=== PATIENT | female | born 1940 | race Caucasian/White ===

== ENCOUNTER 2021-01-24 10:54 | Outpatient (REF) | payer MEDICARE, SELFPAY ==
[2021-01-24 11:27] LABS: Estimated Average Glucose 114 mg/dL; Hemoglobin A1c % 5.6 %
[2021-01-24 12:09] LABS: Alanine Aminotransferase 12 U/L (0-31); Albumin Level 4.4 g/dL (3.5-5.0); Alkaline Phosphatase 69 U/L (39-117); Aspartate Amino Transferase 20 U/L (5-31); Bilirubin Direct 0.3 mg/dL (0.0-0.5); Bilirubin Total 0.5 mg/dL (0.0-1.0); Cholesterol 156 mg/dL; Glucose Fasting 96 mg/dL (60-99); HDL Cholesterol 64 mg/dL; LDL Cholesterol Calculated 72 mg/dl; Total Protein 7.2 g/dL (6.5-8.0); Triglycerides 101 mg/dL
[2021-01-24 12:25] LABS: Reflex LDLD? No
== END 2021-01-24 10:55 | disposition home or self-care (01) ==
LOC: HO.LNP 10:54
PROVIDERS: Visit Provider Internal Medicine
DX: R73.03 Prediabetes (principal); E78.00 Pure hypercholesterolemia, unspecified
CPT/HCPCS: 80061; 80076; 82947; 83036

== ENCOUNTER 2021-07-22 10:40 | Outpatient (REF) | payer MEDICARE, SELFPAY ==
[2021-07-22 10:45] LABS: MANUAL DIFF FLAG NO
[2021-07-22 11:12] LABS: Basophils Absolute Auto 0.1 X10*3/uL (0.0-0.2); Basophils Percent Auto 0.8 % (0-2); Eosinophils Absolute Auto 0.2 X10*3/uL (0.0-0.4); Eosinophils Percent Auto 3.2 % (0-4); Hematocrit 43.5 % (37.0-47.0); Hemoglobin 13.8 g/dl (12.0-16.0); Imm Gran Abs Auto 0.01 X10*3/uL (0.00-0.03); Imm Gran Pct Auto 0.2 % (0.0-0.4); Lymphocytes Absolute Auto 2.3 X10*3/uL (1.2-4.9); Lymphocytes Percent Auto 37.5 % (20-40); Mean Corpuscular HGB Conc 31.7 g/dl (31.0-35.0); Mean Corpuscular Hemoglobin 30.5 pg (27.0-33.0); Mean Platelet Volume 9.8 fL (9.4-12.3); Monocytes Absolute Auto 0.7 X10*3/uL (0.1-1.2); Monocytes Percent Auto 11.2 % (2-11); Neutrophils Absolute Auto 2.9 x10*3/uL (2.0-8.3); Neutrophils Percent Auto 47.1 % (45-73); Platelet Count 282 X10*3/uL (160-400); Red Blood Count 4.53 X10*6/uL (4.20-5.50); Red Cell Distribution Width 14.2 % (11.0-16.0); White Blood Count 6.2 X10*3/uL (4.8-10.8)
[2021-07-22 11:19] LABS: Appearance Urine CLEAR; Color Urine YELLOW; Glucose Urine UA NEG (NEG); Leukocyte Esterase Urine 2+ (NEG); Nitrite Urine NEG (NEG); Urine Blood NEG (NEG); Urine Ketones NEG (NEG); Urine Protein NEG (NEG-TRACE)
[2021-07-22 11:21] LABS: Estimated Average Glucose 114 mg/dL; Hemoglobin A1c % 5.6 %
[2021-07-22 11:32] LABS: Alanine Aminotransferase 19 U/L (0-31); Albumin Level 4.4 g/dL (3.5-5.0); Alkaline Phosphatase 39 U/L (39-117); Anion Gap 11 (12-20); Aspartate Amino Transferase 22 U/L (5-31); Bilirubin Total 0.6 mg/dL (0.0-1.0); Blood Urea Nitrogen 14 mg/dL (9-16); Calcium 9.4 mg/dL (8.4-10.2); Carbon Dioxide 25 mmol/L (22-29); Chloride 108 mmol/L (96-108); Cholesterol 169 mg/dL; Estimated Glomerular Filt Rate > 60; Glucose Fasting 95 mg/dL (60-99); HDL Cholesterol 53 mg/dL; LDL Cholesterol Calculated 96 mg/dl; Sodium 140 mmol/L (135-145); Total Protein 7.3 g/dL (6.5-8.0); Triglycerides 102 mg/dL
[2021-07-22 11:37] LABS: Creatinine Urine 178.54 mg/dL; Microalbum/Creatinine Ratio Ur 15.6 ug/mg cr
[2021-07-22 11:45] LABS: Renal Epithelial Cells Urine TRACE /LPF; Squamous Epithelial Cell Urine TRACE /LPF
[2021-07-22 11:46] LABS: Amorphous Sediment Urine TRACE /LPF; Bacteria Urine TRACE /LPF; RBC Urine 0 /HPF (0)
[2021-07-22 12:01] LABS: Vitamin D 25-OH Total 55.5 ng/mL (>30)
== END 2021-07-22 10:41 | disposition home or self-care (01) ==
LOC: HO.LNP 10:40
PROVIDERS: Visit Provider Internal Medicine
DX: Z00.00 Encounter for general adult medical examination without abnormal findings (principal); D70.9 Neutropenia, unspecified; I10 Essential (primary) hypertension; R79.9 Abnormal finding of blood chemistry, unspecified; R73.03 Prediabetes; E55.9 Vitamin D deficiency, unspecified; E78.00 Pure hypercholesterolemia, unspecified
CPT/HCPCS: 80053; 80061; 81001; 81003; 82043; 82306; 83036; 85025

== ENCOUNTER 2022-01-23 10:36 | Outpatient (REF) | payer MEDICARE, SELFPAY ==
[2022-01-23 10:40] LABS: MANUAL DIFF FLAG NO
[2022-01-23 11:11] LABS: Basophils Absolute Auto 0.1 X10*3/uL (0.0-0.2); Basophils Percent Auto 0.8 % (0-2); Eosinophils Absolute Auto 0.2 X10*3/uL (0.0-0.4); Eosinophils Percent Auto 3.7 % (0-4); Hematocrit 42.4 % (37.0-47.0); Hemoglobin 13.6 g/dl (12.0-16.0); Imm Gran Abs Auto 0.02 X10*3/uL (0.00-0.03); Imm Gran Pct Auto 0.3 % (0.0-0.4); Lymphocytes Absolute Auto 2.4 X10*3/uL (1.2-4.9); Lymphocytes Percent Auto 40.4 % (20-40); Mean Corpuscular HGB Conc 32.1 g/dl (31.0-35.0); Mean Corpuscular Hemoglobin 30.2 pg (27.0-33.0); Monocytes Absolute Auto 0.7 X10*3/uL (0.1-1.2); Monocytes Percent Auto 11.8 % (2-11); Neutrophils Absolute Auto 2.5 x10*3/uL (2.0-8.3); Platelet Count 313 X10*3/uL (160-400); Red Blood Count 4.51 X10*6/uL (4.20-5.50); Red Cell Distribution Width 14.4 % (11.0-16.0); White Blood Count 5.9 X10*3/uL (4.8-10.8)
[2022-01-23 11:12] LABS: Appearance Urine CLEAR; Color Urine YELLOW; Glucose Urine UA NEG (NEG); Leukocyte Esterase Urine 2+ (NEG); Nitrite Urine NEG (NEG); PH 6.5 (5.0-8.0); Specific Gravity - Urine 1.015 (1.005-1.025); Urine Blood NEG (NEG); Urine Ketones NEG (NEG); Urine Protein NEG (NEG-TRACE)
[2022-01-23 11:17] LABS: Estimated Average Glucose 117 mg/dL; Hemoglobin A1c % 5.7 %
[2022-01-23 11:24] LABS: Alanine Aminotransferase 24 U/L (0-31); Albumin Level 4.3 g/dL (3.5-5.0); Alkaline Phosphatase 36 U/L (39-117); Anion Gap 11 (12-20); Aspartate Amino Transferase 21 U/L (5-31); Bilirubin Total 0.6 mg/dL (0.0-1.0); Blood Urea Nitrogen 16 mg/dL (9-16); Calcium 9.1 mg/dL (8.4-10.2); Carbon Dioxide 27 mmol/L (22-29); Chloride 105 mmol/L (96-108); Cholesterol 188 mg/dL; Estimated Glomerular Filt Rate > 60; Glucose Fasting 108 mg/dL (60-99); HDL Cholesterol 56 mg/dL; LDL Cholesterol Calculated 112 mg/dl; Potassium 4.1 mmol/L (3.3-5.1); Sodium 139 mmol/L (135-145); Total Protein 7.2 g/dL (6.5-8.0); Triglycerides 104 mg/dL
[2022-01-23 12:01] LABS: Creatinine Urine 94.22 mg/dL; Microalbum/Creatinine Ratio Ur 6.3 ug/mg cr
[2022-01-23 13:32] LABS: Squamous Epithelial Cell Urine TRACE /LPF
[2022-01-23 13:33] LABS: RBC Urine 0 /HPF (0)
== END 2022-01-23 10:37 | disposition home or self-care (01) ==
LOC: HO.LNP 10:36
PROVIDERS: Visit Provider Internal Medicine
DX: E78.00 Pure hypercholesterolemia, unspecified (principal); R73.03 Prediabetes
CPT/HCPCS: 80053; 80061; 81001; 82043; 83036; 85025

== ENCOUNTER 2022-07-24 10:50 | Outpatient (REF) | payer MEDICARE, SELFPAY ==
[2022-07-24 10:55] LABS: MANUAL DIFF FLAG NO
[2022-07-24 11:45] LABS: Appearance Urine Clear; Color Urine Yellow; Glucose Urine UA Negative (Negative); Leukocyte Esterase Urine Moderate (2+) (Negative); Nitrite Urine Negative (Negative); UMIC TRIGGER UA YES; Urine Blood Negative (Negative); Urine Ketones Trace mg/dL (Negative); Urine Protein Negative (Neg-Trace)
[2022-07-24 11:46] LABS: Basophils Absolute Auto 0.1 X10*3/uL (0.0-0.2); Basophils Percent Auto 1.1 % (0-2); Eosinophils Absolute Auto 0.2 X10*3/uL (0.0-0.4); Eosinophils Percent Auto 2.9 % (0-4); Hematocrit 43.6 % (37.0-47.0); Hemoglobin 14.1 g/dl (12.0-16.0); Imm Gran Abs Auto 0.01 X10*3/uL (0.00-0.03); Imm Gran Pct Auto 0.2 % (0.0-0.4); Lymphocytes Absolute Auto 2.2 X10*3/uL (1.2-4.9); Lymphocytes Percent Auto 34.7 % (20-40); Mean Corpuscular HGB Conc 32.3 g/dl (31.0-35.0); Mean Corpuscular Hemoglobin 30.9 pg (27.0-33.0); Mean Corpuscular Volume 95.6 fL (80.0-98.0); Mean Platelet Volume 9.9 fL (9.4-12.3); Monocytes Absolute Auto 0.7 X10*3/uL (0.1-1.2); Monocytes Percent Auto 11.8 % (2-11); Neutrophils Absolute Auto 3.1 x10*3/uL (2.0-8.3); Neutrophils Percent Auto 49.3 % (45-73); Platelet Count 295 X10*3/uL (160-400); Red Blood Count 4.56 X10*6/uL (4.20-5.50); Red Cell Distribution Width 13.8 % (11.0-16.0); White Blood Count 6.3 X10*3/uL (4.8-10.8)
[2022-07-24 11:49] LABS: Bacteria Urine None Seen (None Seen); Hyaline Casts Urine 0-2 /LPF (0-2); RBC Urine 0-2 /HPF (0-2); Squamous Epithelial Cell Urine 0-2 /HPF (0-2)
[2022-07-24 12:23] LABS: Creatinine Urine 163.67 mg/dL; Microalbum/Creatinine Ratio Ur 7.9 ug/mg cr
[2022-07-24 12:33] LABS: Estimated Average Glucose 117 mg/dL; Hemoglobin A1c % 5.7 %
[2022-07-24 13:02] LABS: Alanine Aminotransferase 21 U/L (0-31); Albumin Level 4.4 g/dL (3.5-5.0); Alkaline Phosphatase 32 U/L (39-117); Anion Gap 13 (12-20); Aspartate Amino Transferase 21 U/L (5-31); Bilirubin Total 0.5 mg/dL (0.0-1.0); Blood Urea Nitrogen 14 mg/dL (9-16); Calcium 9.2 mg/dL (8.4-10.2); Carbon Dioxide 26 mmol/L (22-29); Chloride 106 mmol/L (96-108); Cholesterol 167 mg/dL; Estimated Glomerular Filt Rate > 60; Glucose Fasting 101 mg/dL (60-99); HDL Cholesterol 62 mg/dL; LDL Cholesterol Calculated 89 mg/dl; Potassium 4.1 mmol/L (3.3-5.1); Sodium 141 mmol/L (135-145); Total Protein 6.9 g/dL (6.5-8.0); Triglycerides 81 mg/dL; Vitamin D 25-OH Total 65.1 ng/mL (>30)
== END 2022-07-24 10:51 | disposition home or self-care (01) ==
LOC: HO.LNP 10:50
PROVIDERS: Visit Provider Internal Medicine
DX: Z00.00 Encounter for general adult medical examination without abnormal findings (principal); I10 Essential (primary) hypertension; R79.9 Abnormal finding of blood chemistry, unspecified; E78.00 Pure hypercholesterolemia, unspecified; R73.03 Prediabetes; E55.9 Vitamin D deficiency, unspecified; D70.9 Neutropenia, unspecified
CPT/HCPCS: 80053; 80061; 81001; 82043; 82306; 83036; 85025

== ENCOUNTER 2023-01-23 11:03 | Outpatient (REF) | payer MEDICARE, SELFPAY ==
[2023-01-23 12:15] LABS: Estimated Average Glucose 108 mg/dL; Hemoglobin A1c % 5.4 %
[2023-01-23 12:28] LABS: Alanine Aminotransferase 20 U/L (0-31); Albumin Level 4.5 g/dL (3.5-5.0); Alkaline Phosphatase 30 U/L (39-117); Aspartate Amino Transferase 22 U/L (5-31); Bilirubin Direct 0.2 mg/dL (0.0-0.5); Bilirubin Total 0.7 mg/dL (0.0-1.0); Cholesterol 163 mg/dL; Glucose Fasting 100 mg/dL (60-99); HDL Cholesterol 59 mg/dL; LDL Cholesterol Calculated 87 mg/dl; Total Protein 7.5 g/dL (6.5-8.0); Triglycerides 87 mg/dL
[2023-01-23 12:42] LABS: Reflex LDLD? No
== END 2023-01-23 11:04 | disposition home or self-care (01) ==
LOC: HO.LNP 11:03
PROVIDERS: Visit Provider Internal Medicine
DX: E78.00 Pure hypercholesterolemia, unspecified (principal); R73.03 Prediabetes
CPT/HCPCS: 80061; 80076; 82947; 83036

== ENCOUNTER 2023-07-23 10:55 | Outpatient (REF) | payer MEDICARE, SELFPAY ==
[2023-07-23 10:59] LABS: MANUAL DIFF FLAG NO
[2023-07-23 11:08] LABS: Appearance Urine Clear; Color Urine Yellow; Glucose Urine UA Negative (Negative); Leukocyte Esterase Urine Negative (Negative); Nitrite Urine Negative (Negative); PH 5.5 (5.0-9.0); Urine Blood Negative (Negative); Urine Ketones Negative (Negative); Urine Protein Negative (Neg-Trace)
[2023-07-23 11:14] LABS: Bacteria Urine None Seen (None Seen); Hyaline Casts Urine 0-2 /LPF (0-2); Squamous Epithelial Cell Urine 0-2 /HPF (0-2); WBC Urine 0-5 /HPF (0-5)
[2023-07-23 11:20] LABS: Basophils Absolute Auto 0.1 X10*3/uL (0.0-0.2); Eosinophils Absolute Auto 0.1 X10*3/uL (0.0-0.4); Eosinophils Percent Auto 2.4 % (0-4); Hemoglobin 14.8 g/dl (12.0-16.0); Imm Gran Abs Auto 0.01 X10*3/uL (0.00-0.03); Imm Gran Pct Auto 0.2 % (0.0-0.4); Lymphocytes Percent Auto 33.4 % (20-40); Mean Corpuscular HGB Conc 32.9 g/dl (31.0-35.0); Mean Corpuscular Volume 94.3 fL (80.0-98.0); Mean Platelet Volume 9.9 fL (9.4-12.3); Monocytes Absolute Auto 0.6 X10*3/uL (0.1-1.2); Monocytes Percent Auto 9.7 % (2-11); Neutrophils Absolute Auto 3.2 x10*3/uL (2.0-8.3); Neutrophils Percent Auto 53.3 % (45-73); Platelet Count 301 X10*3/uL (160-400); Red Blood Count 4.77 X10*6/uL (4.20-5.50); Red Cell Distribution Width 13.4 % (11.0-16.0); White Blood Count 5.9 X10*3/uL (4.8-10.8)
[2023-07-23 11:28] LABS: Alanine Aminotransferase 20 U/L (0-31); Albumin Level 4.4 g/dL (3.5-5.0); Alkaline Phosphatase 33 U/L (39-117); Anion Gap 11 (12-20); Aspartate Amino Transferase 23 U/L (5-31); Bilirubin Total 0.5 mg/dL (0.0-1.0); Blood Urea Nitrogen 17 mg/dL (9-16); Calcium 9.5 mg/dL (8.4-10.2); Carbon Dioxide 27 mmol/L (22-29); Chloride 106 mmol/L (96-108); Cholesterol 170 mg/dL (<200); Estimated Glomerular Filt Rate > 60; Glucose Fasting 101 mg/dL (60-99); HDL Cholesterol 60 mg/dL (>40); LDL Cholesterol Calculated 95 mg/dL (<100); Potassium 4.1 mmol/L (3.3-5.1); Sodium 140 mmol/L (135-145); Total Protein 7.8 g/dL (6.5-8.0); Triglycerides 78 mg/dL (<150)
[2023-07-23 11:33] LABS: Estimated Average Glucose 111 mg/dL; Hemoglobin A1c % 5.5 % (<6.0)
[2023-07-23 12:02] LABS: Creatinine Urine 51.41 mg/dL; Microalbumin Urine < 5.0 mg/L
== END 2023-07-23 10:56 | disposition home or self-care (01) ==
LOC: HO.LNP 10:55
PROVIDERS: Visit Provider Internal Medicine
DX: Z00.00 Encounter for general adult medical examination without abnormal findings (principal); I10 Essential (primary) hypertension; E78.00 Pure hypercholesterolemia, unspecified; R73.03 Prediabetes; E55.9 Vitamin D deficiency, unspecified; D70.9 Neutropenia, unspecified
CPT/HCPCS: 80053; 80061; 81001; 82043; 82306; 82570; 83036; 85025

== ENCOUNTER 2023-07-30 16:52 | Outpatient (REF) | payer MEDICARE, SELFPAY ==
[2023-07-30 17:03] LABS: Appearance Urine Clear; Color Urine Yellow; Glucose Urine UA Negative (Negative); Leukocyte Esterase Urine Negative (Negative); Nitrite Urine Negative (Negative); PH 5.5 (5.0-9.0); Urine Blood Negative (Negative); Urine Ketones Negative (Negative); Urine Protein Negative (Neg-Trace)
[2023-07-30 17:05] LABS: Bacteria Urine None Seen (None Seen); Hyaline Casts Urine 0-2 /LPF (0-2); RBC Urine 0-2 /HPF (0-2); Squamous Epithelial Cell Urine 0-2 /HPF (0-2); WBC Urine 0-5 /HPF (0-5)
== END 2023-07-30 16:53 | disposition home or self-care (01) ==
LOC: HO.LNP 16:52
PROVIDERS: Visit Provider Internal Medicine
DX: R31.29 Other microscopic hematuria (principal)
CPT/HCPCS: 81001

== ENCOUNTER 2024-08-01 10:41 | Outpatient (REF) | payer MEDICARE, SELFPAY ==
--- OUTSIDE RECORDS SUMMARY | 2024-08-01 10:47 | XMS_ITS ---
Author Organization Malick Ayala MD Address [address] [place] [phone] Care Team Providers Care Ship'S Engineer Name Role Phone Malick Ayala Primary Care Provider REASON FOR VISIT FASTING LABS Encounters Encounter Location Date Provider Diagnosis Malick Ayala MD [address] [place] [phone] 08/01/2024 Malick Ayala Blood tests for rout ine general physical examination Z00.00 ; Essential (primary) hypertension I10 ; Elevated BUN R79.9 ; Prediabetes R73.03 ; Low vitamin D level E55.9 ; Neutropenia, unspecified type D70.9 and Pure hypercholesterolemia E78.00 ASSESSMENTS Encounter Date Diagnosis Assessment Notes Treatment Notes Treatment Clinical Notes 08/01/2024 Blood tests for rout ine general physical examination (ICD-10 - Z00.00) 08/01/2024 Essential (primary) hypertension (ICD-10 - I10) 08/01/2024 Elevated BUN (ICD-10 - R79.9) 08/01/2024 Prediabetes (ICD-10 - R73.03) 08/01/2024 Low vitamin D level (ICD-10 - E55.9) 08/01/2024 Neutropenia, unspeci fied type (ICD-10 - D70.9) 08/01/2024 Pure hypercholestero lemia (ICD-10 - E78.00) PLAN OF TREATMENT Pending Test Test Name Order Date Complete Blood Count Auto Diff Comprehensive [place]. Panel Fast 4 Lipid Panel 08/01/2024 Vitamin D 25-OH Total 08/01/2024 Microalbumin, Random 08/01/2024 Hemoglobin A1c 08/01/2024 UA ClnCatch+Micro w/rflx Cult 08/01/2024 Next Appt Details Provider Name:Malick bourne, 08/23/2024 10:00:00 AM, [address] [place] [address], [address], [place], [place], [phone],
--- OUTSIDE RECORDS SUMMARY | 2024-08-01 10:47 | XMS_ITS ---
Author Organization Malick Ayala MD Address [address] [place], [place] [phone] Care Team Providers Care Business Services Representative Name Role Phone Malick Ayala Primary Care Provider ALLERGIES Allergen (clinical drug ingredient) Drug/Non Drug Allergy documented on EMR Reaction Allergy Type Onset Date Status atorvastatin Lipitor muscle pains Drug Allergy A ctive RESULTS Component Value Reference Range Notes Urinalysis and Microscopic Reviewed date:07/31/2023 12:21:16 PM Interpretation: Performing Lab:[facility], [address] [place] [id number] Notes/Report: Color Urine Yellow Appearance Urine Clear PH 5.5 5.0-9.0 Glucose Urine UA Negative Negative mg/dL Urine Blood Negative Negative Specific [place] - Urine 1.010 1.005-1.025 Urine Protein Negative Neg-Trace mg/dL Urine Ketones Negative Negative mg/dL Nitrite Urine Negative Negative Leukocyte Esterase Urine Negative Negative RBC Urine 0-2 0-2 /HPF WBC Urine 0-5 0-5 /HPF Squamous Epithelial Cell Urine 0-2 0-2 /HPF Bacteria Urine None Seen None Seen Hyaline Casts Urine 0-2 0-2 /LPF REASON FOR VISIT ANNUAL EXAM, NO Covid symptoms MEDICATIONS Medication SIG (Take, Route, Frequency, Duration) Notes Start Date End Date Status Tylenol 8 Hour 650 MG 2 tablets as neede d Orally every 8 hrs Not-Taking Aspir-81 81 MG 1 tablet Orally Once a day 02/25/2013 Not-Taking Ibuprofen 800 MG 1 tablet with food o r milk as needed Orally Three times a day for 30 days 11/11/2018 Not-Taking Prolia 60 MG/ML as directed Subcutaneous Active Vitamin D3 2000 UNIT 2 capsule Orally On ce a day Active Cosopt 22.3-6.8 MG/ML 1 drop into affect ed eye Ophthalmic Twice a day Active Flonase 50 MCG/ACT 1 spray in each nost ril Nasally Once a day Active Lisinopril 5 MG TAKE 1 TABLET BY SEAN TH ONCE DAILY Active Rosuvastatin Calcium 20 MG TAKE 1 TABLET BY MOUTH ONCE DAILY Active SOCIAL HISTORY Tobacco Use: Social History Observation Description Date Details (start date - stop date) Never Smoker NA - NA Sex Assigned At : Social History Observation Description Sex Assigned At Unknown Tobacco Use/Smoking Question Answer Notes Patient is a nonsmoker Additional Findings: Tobacco Non-User Cu rrent non-smoker, currently using no form of tobacco Alcohol Screen Question Answer Notes Did you have a drink contain ing alcohol in the past year? Yes How often did you have a dri nk containing alcohol in the past year? Monthly or less (1 point) How many drinks did you have on a typical day when you were drinking in the past year? 1 or 2 drinks (0 point) How often did you have 6 or more drinks on one occasion in the past year? Never (0 point) Points 1 Interpretation Negative VITAL SIGNS BMI 23.58 kg/m2 07/30/2023 Blood pressure systolic 122 mm Hg 07/30/20 23 Blood pressure diastolic 70 mm Hg 023 Height 57 in 07/30/2023 Weight 109 lbs 07/30/2023 Encounters Encounter Location Date Provider Diagnosis Malick Ayala MD [address] [place] [address] [address] [place], [place] [phone] 07/30/2023 Malick Ayala Age-related osteopor osis without current pathological fracture M81.0 ; Annual physical exam Z00.00 ; Microscopic hematuria R31.29 ; Essential (primary) hypertension I10 ; Pure hypercholesterolemia E78.00 ; Prediabetes R73.03 and Depression screening Z13.31 ASSESSMENTS Encounter Date Diagnosis Assessment Notes Treatment Notes Treatment Clinical Notes 07/30/2023 Age-related osteopor osis without current pathological fracture (ICD-10 - M81.0) taking meds and is doing well. on prolia twice a year, will continue current regiment 07/30/2023 Annual physical exam (ICD-10 - Z00.00) labs reviewed and discussed with patient 07/30/2023 Microscopic hematuri a (ICD-10 - R31.29) pending recheck of lab 07/30/2023 Essential (primary) hypertension (ICD-10 - I10) stable, will continue current regiment 07/30/2023 Pure hypercholestero lemia (ICD-10 - E78.00) stable, will contnue current regiment 07/30/2023 Prediabetes (ICD-10 - R73.03) stable, no need for medication at this time 07/30/2023 Depression screening (ICD-10 - Z13.31) negative screen PLAN OF TREATMENT Medication Medication Name Sig Start Date Stop Date Notes Prolia 60 MG/ML as directed Subcutaneous Lisinopril 5 MG TAKE 1 TABLET BY SEAN TH ONCE DAILY Rosuvastatin Calcium 20 MG TAKE 1 TABLET BY MOUTH ONCE DAILY Treatment Notes Assessment Notes Age-related osteoporosis wit hout current pathological fracture taking meds and is doing well. on prolia twice a year, will continue current regiment Annual physical exam labs reviewed and d iscussed with patient Microscopic hematuria pending recheck of lab Essential (primary) hypertension stable, will continue current regiment Pure hypercholesterolemia stable, will c ontnue current regiment Prediabetes stable, no need for medication at this time Depression screening negative screen Next Appt Details Follow Up: 6 Months, Reason: Provider Name:Malick bourne, 08/23/2024 10:00:00 AM, [address], [address], [place], [place], [phone], Progress Notes * Examination Category Sub-Category Detail Notes General Examination GENERAL APPEARANCE: well dev eloped, well nourished, in no acute distress HEAD: normocephalic, atrau matic EYES: pupils equal, round, reactive to light and accommodation, sclera non- icteric EARS: normal THROAT: clear NECK/THYROID: neck supple, full ra nge of motion, no cervical lymphadenopathy, no bruits HEART: regular rate and rhy thm, S1, S2 normal, no murmurs LUNGS: clear to auscultatio n bilaterally ABDOMEN: soft, nontender, non distended, bowel sounds present, normal, no organomegaly , no masses palpable NEUROLOGIC: nonfocal, motor stre ngth normal upper and lower extremities, sensory exam intact SKIN: warm and dry, no jennifer picious lesions EXTREMITIES: no clubbing, cyanosi s, or edema BREASTS: followed by surgeon RECTAL EXAM: done by shoe repair supervisor FEMALE GENITOURINARY: done by shoe repair supervisor ORAL CAVITY: mucosa moist History and Physical Notes * HPI (History of Present Illness) Category Sub-Category Detail Notes Depression Screening PHQ-9 Little inte rest or pleasure in doing things: Not at all Feeling down, depressed, or hopeless: No t at all Trouble falling or staying asleep, or sl eeping too much: Not at all Feeling tired or having little energy: N ot at all Poor appetite or overeating: Not at all Feeling bad about yourself o r that you are a failure, or have let yourself or your family down: Not at all Trouble concentrating on thi ngs, such as reading the newspaper or watching television: Not at all Moving or speaking so slowly that other people could have noticed; or the opposite, being so fidgety or restless that you have been moving around a lot more than usual: Not at all Thoughts that you would be b tona off or of hurting yourself in some way: Not at all Total Score: 0 Interpretation and Intervention Depression Tamar solomon Findings: Negative Follow-Up for Depression: : review of PH Q-9 found negative result, no follow-up needed SDOH Questions SDOH Questions In the past year have you been worried about losing housing?: No In the past year have you or any family members you live with been unable to get any of the following when it was really needed? Check all that apply:: None Fall Risk History Have you had any falls with injury in the past year?: No Have you had two or more falls in the st year?: No Communication Needs Communication Needs Does the patient have a hearing impairment: No Does the patient have a vision impairmen t?: Yes ?If yes, what is the vision impairment?: Glasses Does the patient have a cognition impair ment?: No
--- OUTSIDE RECORDS SUMMARY | 2024-08-01 10:47 | XMS_ITS ---
Author Organization Malick Ayala MD Address [address] [place], [place] [id number] Care Team Providers Care Rotor Blade Installer Name Role Phone Malick Ayala Primary Care Provider [phone] ALLERGIES Allergen (clinical drug ingredient) Drug/Non Drug Allergy documented on EMR Reaction Allergy Type Onset Date Status atorvastatin Lipitor muscle pains Drug Allergy A ctive REASON FOR VISIT 6 MO F/U MEDICATIONS Medication SIG (Take, Route, Frequency, Duration) Notes Start Date End Date Status Aspir-81 81 MG 1 tablet Orally Once a day 02/25/2013 Not-Taking Ibuprofen 800 MG 1 tablet with food o r milk as needed Orally Three times a day for 30 days 11/11/2018 Not-Taking Cosopt 22.3-6.8 MG/ML 1 drop into affect ed eye Ophthalmic Twice a day Active Rosuvastatin Calcium 20 MG TAKE 1 TABLET BY MOUTH ONCE DAILY Active Tylenol 8 Hour 650 MG 2 tablets as neede d Orally every 8 hrs Not-Taking Lisinopril 5 MG TAKE 1 TABLET BY SEAN TH ONCE DAILY Active Vitamin D3 2000 UNIT 2 capsule Orally On a day Active Prolia 60 MG/ML as directed Subcutaneous Active VITAL SIGNS BMI 23.80 kg/m2 01/25/2024 Blood pressure systolic 124 mm Hg 01/25/20 24 Blood pressure diastolic 70 mm Hg 024 Height 57 in 01/25/2024 Weight 110 lbs 01/25/2024 Encounters Encounter Location Date Provider Diagnosis Malick Ayala MD [address] [place] [address] Drive [address] [place], [place] [phone] 01/25/2024 Malick Ayala Prediabetes R73.03 ; Essential (primary) hypertension I10 ; Age-related osteoporosis without current pathological fracture M81.0 and Environmental allergies Z91.09 ASSESSMENTS Encounter Date Diagnosis Assessment Notes Treatment Notes Treatment Clinical Notes 01/25/2024 Prediabetes (ICD-10 - R73.03) doing well, no need for medication at this time, will continue to monitor 01/25/2024 Essential (primary) hypertension (ICD-10 - I10) stable, will continue current regiment 01/25/2024 Age-related osteoporosis without current pathological fracture (ICD-10 - M81.0) exercises daily. will continue current regiment 01/25/2024 Environmental allergies (ICD-10 - Z91.09) getting shots PLAN OF TREATMENT Medication Medication Name Sig Start Date Stop Date Notes Lisinopril 5 MG TAKE 1 TABLET BY MOUTH ONCE DAILY Vitamin D3 2000 UNIT 2 capsule Orally Once a day Prolia 60 MG/ML as directed Subcutaneous Treatment Notes Assessment Notes Prediabetes doing well, no need for medication at this time, will continue to monitor Essential (primary) hypertension stable, will continue current regiment Age-related osteoporosis wit hout current pathological fracture exercises daily. will continue current regiment Environmental allergies getting shots Next Appt Details Provider Name:Malick bourne, 08/23/2024 10:00:00 AM, [address], [address], [place], [place], [phone], Progress Notes * Examination Category Sub-Category Detail Notes General Examination GENERAL APPEARANCE: alert, w ell hydrated, in no distress HEAD: normocephalic HEART: regular rate and rhy thm, no murmurs, rubs, gallops LUNGS: no wheezes, rales, r honchi, good air movement, clear to auscultation bilaterally SKIN: good turgor
--- OUTSIDE RECORDS SUMMARY | 2024-08-01 10:48 | XMS_ITS ---
Author Name [facility] Organization Unknown Results Test Name/Text Value Interpretation Date Range Source LAB AP DIAGNOSIS COMMENT Received from [facility], [address], [place] [address], are one slide and one block labeled [id number] , which are retained for our files. Normal [facility] AP GROSS DESCRIPTION Received in formalin is an irregularly shaped fragment of skin measuring 0.6 x 0.6 x 0.1 cm. The specimen is bisected and submitted entirely in one cassette. (Gross Description performed by [facility], [place], [place]) Normal [facility] AP CLINICAL INFORMATION Dysplastic nevus Normal [facility]
--- OUTSIDE RECORDS SUMMARY | 2024-08-01 10:48 | XMS_ITS | Patient Health Record ---
Author Organization Malick Ayala MD Address [address] [place], [place] [phone] Care Team Providers Care Digital Account Supervisor Name Role Phone Malick Ayala Primary Care Provider ALLERGIES Allergen (clinical drug ingredient) Drug/Non Drug Allergy documented on EMR Reaction Allergy Type Onset Date Status atorvastatin Lipitor muscle pains Drug Allergy A ctive REASON FOR REFERRAL No Information MEDICATIONS Medication SIG (Take, Route, Frequency, Duration) Notes Start Date End Date Status Vitamin D3 2000 UNIT 2 capsule Orally On ce a day Active Prolia 60 MG/ML as directed Subcutaneous Active Aspir-81 81 MG 1 tablet Orally Once a day 02/25/2013 Not-Taking Ibuprofen 800 MG 1 tablet with food o r milk as needed Orally Three times a day for 30 days 11/11/2018 Not-Taking Lisinopril 5 MG TAKE 1 TABLET BY ONCE DAILY for 100 Active Cosopt 22.3-6.8 MG/ML 1 drop into affect ed eye Ophthalmic Twice a day Active Tylenol 8 Hour 650 MG 2 tablets as neede d Orally every 8 hrs Not-Taking Rosuvastatin Calcium 20 MG TAKE 1 TABLET BY MOUTH ONCE DAILY for 100 Active IMMUNIZATIONS Vaccine Route Administration Date Status Comme nts PPSV23 (Pnemovax) IM Intramuscular 02/25/2013 Administered Mailing out VIS to patient Flu Vaccine Unknown 05/09/2013 Administered [facility] TDaP IM Intramuscular 03/17/2014 Administered Fluarix Quadrivalent IM Intramuscular 05/01/2014 Administered Fluarix Quadrivalent IM Intramuscular 05/21/2015 Administered Prevnar 13 IM Intramuscular 05/31/2015 Administered Fluarix Quadrivalent IM Intramuscular 05/27/2016 Administered Fluarix Quadrivalent IM Intramuscular 05/26/2017 Administered Fluarix Quadrivalent IM Intramuscular 06/14/2018 Administered Shingrix IM Intramuscular 07/27/2018 Administered Shingrix Unknown 01/06/2019 Administered [facility] Fluarix Quadrivalent IM Intramuscular 05/09/2019 Administered PPSV23 (Pnemovax) IM Intramuscular 06/21/2019 Administered Fluarix Quadrivalent IM Intramuscular 06/12/2020 Administered Shingles Unknown 01/06/2019 Administered SARS-COV-2 Pfizer Unknown 09/20/2020 Administered SARS-COV-2 Pfizer Unknown 10/11/2020 Administered SARS-COV-2 Pfizer Unknown 05/15/2021 Administered Influenza High Dose Unknown 05/31/2021 Administered SARS-COV-2 Pfizer Unknown 05/28/2022 Administered SOCIAL HISTORY Tobacco Use: Social History Observation [...] Never (0 point) Points 1 Interpretation Negative PROBLEMS Problem Type ICD Code Onset Dates Problem Status W/U Status Risk SNOMED Code Notes Problem Age-related osteoporosis without current pathological fracture (M81.0) Active confirmed 57394945 Problem Elevated BUN (R79.9) Active confirmed 1 30842409 Problem Essential (primary) hypertension (I10) Active confirmed Essential hypertension (99875507) Problem Environmental allerg ies (Z91.09) Active confirmed 612914759 Problem History of breast cancer (Z85.3) Active confirmed 822936273 Problem Neutropenia, unspecified type (D70.9) Active confirmed Neutropenia (896506039) Problem Prediabetes (R73.03) Active confirmed 7 62854670 Problem Pure hypercholesterolemia (E78.00) Active confirmed 103352238 Problem Low vitamin D level (E55.9) Active confirmed 831927125 Problem Age related osteoporosis, unspecified pathological fracture presence (M81.0) Active confirmed 684507960 VITAL SIGNS Blood pressure diastolic 70 mm Hg 01/25/2024 Height 57 in 01/25/2024 Blood pressure systolic 124 mm Hg 01/25/2024 Weight 110 lbs 01/25/2024 BMI 23.80 kg/m2 01/25/2024 Encounters Encounter Location Date Provider Diagnosis Malick Ayala MD [address] [place] [address] Drive [address] [place] [phone] 08/01/2024 Malick Ayala Blood tests for rout ine general physical examination Z00.00 ; Essential (primary) hypertension I10 ; Elevated BUN R79.9 ; Prediabetes R73.03 ; Low vitamin D level E55.9 ; Neutropenia, unspecified type D70.9 and Pure hypercholesterolemia E78.00 Malick Ayala MD [address] [place] [address] Drive [address] [place] [phone] 01/25/2024 Malick Ayala Prediabetes R73.03 ; Essential (primary) hypertension I10 ; Age-related osteoporosis without current pathological fracture M81.0 and Environmental allergies Z91.09 ASSESSMENTS Encounter Date Diagnosis Assessment Notes Treatment Notes Treatment Clinical Notes 08/01/2024 Blood tests for rout ine general physical examination (ICD-10 - Z00.00) 01/25/2024 Essential (primary) hypertension (ICD-10 - I10) stable, will continue current regiment 01/25/2024 Prediabetes (ICD-10 - R73.03) doing well, no need for medication at this time, will continue to monitor 08/01/2024 Essential (primary) hypertension (ICD-10 - I10) 01/25/2024 Age-related osteopor osis without current pathological fracture (ICD-10 - M81.0) exercises daily. will continue current regiment 08/01/2024 Elevated BUN (ICD-10 - R79.9) 01/25/2024 Environmental allerg ies (ICD-10 - Z91.09) getting shots 08/01/2024 Prediabetes (ICD-10 - R73.03) 08/01/2024 Low vitamin D level (ICD-10 - E55.9) 08/01/2024 Neutropenia, unspeci fied type (ICD-10 - D70.9) 08/01/2024 Pure hypercholestero lemia (ICD-10 - E78.00) PLAN OF TREATMENT Pending Test Test Name Order Date Electrocardiogram (EKG) 06/02/2016 Electrocardiogram (EKG) 06/04/2017 Electrocardiogram (EKG) 06/17/2018 KYPHOPLASTY THORACIC 11/30/2018 KYPHOPLASTY THORACIC 12/07/2018 BREAST BIOPSY CORE GUIDE 07/05/2019 Complete Blood Count Auto Diff Comprehensive [place]. Panel Fast 4 Lipid Panel 08/01/2024 Vitamin D 25-OH Total 08/01/2024 Microalbumin, Random 08/01/2024 Hemoglobin A1c 08/01/2024 UA ClnCatch+Micro w/rflx Cult 08/01/2024 Next Appt Details Provider Name:Malick Quiles ier, 08/23/2024 10:00:00 AM, [address] [place] [address], [address], [place], [place], [phone], Insurance Providers Payer Name Payer Address Payer Phone Subscriber Number Group Number Insured Name Patient Relationship to Insured Coverage Start Date Coverage End Date [facility] [employer] [address] [address] [place] [address] [id number] Patricia Bonner Self - patient is the insured MEDICAL (GENERAL) HISTORY Medical History History ICD Code colonoscopy 2002, due in 201202/25/13 - refuses bone density would nev er take meds 05/26/2013 - Colonoscopy (negative; no n eed for future testing per ) Neutropenia, unspecified type D70.9 Lymphocytosis D72.820 mammo 2020 negative
[2024-08-01 10:57] LABS: MANUAL DIFF FLAG NO
[2024-08-01 11:36] LABS: Appearance Urine Clear; Color Urine Yellow; Glucose Urine UA Negative (Negative); Leukocyte Esterase Urine Small (1+) (Negative); Nitrite Urine Negative (Negative); PH 7.5 (5.0-9.0); UMIC TRIGGER UACC YES; Urine Blood Negative (Negative); Urine Ketones Negative (Negative); Urine Protein Negative (Neg-Trace)
[2024-08-01 11:49] LABS: Bacteria Urine None Seen (None Seen); Hyaline Casts Urine 0-2 /LPF (0-2); RBC Urine 0-2 /HPF (0-2); Squamous Epithelial Cell Urine 0-2 /HPF (0-2); UACC Culture Trigger YES; WBC Urine 0-5 /HPF (0-5)
[2024-08-01 11:51] LABS: Basophils Percent Auto 0.8 % (0-2); Eosinophils Absolute Auto 0.2 X10*3/uL (0.0-0.4); Eosinophils Percent Auto 3.6 % (0-4); Hematocrit 44.1 % (37.0-47.0); Hemoglobin 14.3 g/dl (12.0-16.0); Imm Gran Abs Auto 0.01 X10*3/uL (0.00-0.03); Imm Gran Pct Auto 0.2 % (0.0-0.4); Lymphocytes Absolute Auto 2.3 X10*3/uL (1.2-4.9); Lymphocytes Percent Auto 44.3 % (20-40); Mean Corpuscular HGB Conc 32.4 g/dl (31.0-35.0); Mean Corpuscular Hemoglobin 30.7 pg (27.0-33.0); Mean Corpuscular Volume 94.6 fL (80.0-98.0); Mean Platelet Volume 9.8 fL (9.4-12.3); Monocytes Absolute Auto 0.6 X10*3/uL (0.1-1.2); Monocytes Percent Auto 11.4 % (2-11); Neutrophils Absolute Auto 2.1 x10*3/uL (2.0-8.3); Neutrophils Percent Auto 39.7 % (45-73); Platelet Count 279 X10*3/uL (160-400); Red Blood Count 4.66 X10*6/uL (4.20-5.50); Red Cell Distribution Width 14.5 % (11.0-16.0); White Blood Count 5.3 X10*3/uL (4.8-10.8)
[2024-08-01 11:56] LABS: Estimated Average Glucose 114 mg/dL; Hemoglobin A1c % 5.6 % (<6.0); Total Hemoglobin (HGBA1C) 3693.2846 umol/L
[2024-08-01 12:06] LABS: Alanine Aminotransferase 28 U/L (0-31); Albumin Level 4.4 g/dL (3.5-5.0); Alkaline Phosphatase 35 U/L (39-117); Anion Gap 12 (12-20); Aspartate Amino Transferase 29 U/L (5-31); Bilirubin Total 0.5 mg/dL (0.0-1.0); Blood Urea Nitrogen 14 mg/dL (9-16); Carbon Dioxide 26 mmol/L (22-29); Chloride 106 mmol/L (96-108); Cholesterol 179 mg/dL (<200); Estimated Glomerular Filt Rate > 60; Glucose Fasting 107 mg/dL (60-99); HDL Cholesterol 52 mg/dL (>40); LDL Cholesterol Calculated 93 mg/dL (<100); Potassium 3.9 mmol/L (3.3-5.1); Sodium 140 mmol/L (135-145); Total Protein 7.7 g/dL (6.5-8.0); Triglycerides 173 mg/dL (<150)
[2024-08-01 12:20] LABS: Creatinine Urine 43.47 mg/dL; Microalbum/Creatinine Ratio Ur 13.8 ug/mg cr (<30)
[2024-08-01 12:26] LABS: Vitamin D 25-OH Total 120.2 ng/mL (>30)
== END 2024-08-01 10:42 | disposition home or self-care (01) ==
LOC: HO.LNP 10:41
PROVIDERS: Visit Provider Internal Medicine
DX: Z00.00 Encounter for general adult medical examination without abnormal findings (principal); I10 Essential (primary) hypertension; R79.9 Abnormal finding of blood chemistry, unspecified; R73.03 Prediabetes; E55.9 Vitamin D deficiency, unspecified; D70.9 Neutropenia, unspecified; E78.00 Pure hypercholesterolemia, unspecified
CPT/HCPCS: 80053; 80061; 81001; 82043; 82306; 82570; 83036; 85025; 87086

== ENCOUNTER 2025-02-20 10:48 | Outpatient (REF) | payer MEDICARE, SELFPAY ==
[2025-02-20 11:23] LABS: Hemoglobin A1C 222.4049 umol/L; Total Hemoglobin (HGBA1C) 4115.7291 umol/L
--- OUTSIDE RECORDS SUMMARY | 2025-02-20 11:44 | XMS_ITS | Patient Health Record ---
Author Organization Malick Ayala MD Address [address] [place], [place] [address] Care Team Providers Care Electronic Parts Salesperson Name Role Phone Malick Ayala Primary Care Provider Allergies Allergen (clinical drug ingredient) Drug/Non Drug Allergy documented on EMR Reaction Allergy Type Onset Date Status atorvastatin Lipitor muscle pains Drug Allergy A ctive Results Component Value Reference Range Notes Complete Blood Count Auto Di ff Reviewed date:08/25/2024 08:10:49 AM Interpretation:SAUL 08/23/24 Performing Lab:[facility], [address] [place] [phone] Notes/Report: White Blood Count 5.3 4.8-10.8 X10*3/uL Red Blood Count 4.66 4.20-5.50 X10*6/uL Hemoglobin 14.3 12.0-16.0 g/dl Hematocrit 44.1 37.0-47.0 % Mean Corpuscular Volume 94.6 80.0-98.0 fL Mean Corpuscular Hemoglobin 30.7 27.0-33.0 pg Mean Corpuscular HGB Conc 32.4 31.0-35.0 g/dl Red Cell Distribution Width 14.5 11.0-16.0 % Platelet Count 279 160-400 X10*3/uL Mean Platelet Volume 9.8 9.4-12.3 fL Neutrophils Percent Auto 39.7 45-73 % Imm Gran Pct Auto 0.2 0.0-0.4 % Lymphocytes Percent Auto 44.3 20-40 % Monocytes Percent Auto 11.4 2-11 % Eosinophils Percent Auto 3.6 0-4 % Basophils Percent Auto 0.8 0-2 % NRBC Pct Auto 0.0 0.0-0.2 /100WBC Neutrophils Absolute Auto 2.1 2.0-8.3 x10*3/u L Imm Gran Abs Auto 0.01 0.00-0.03 X10*3/uL Lymphocytes Absolute Auto 2.3 1.2-4.9 X10*3/u L Monocytes Absolute Auto 0.6 0.1-1.2 X10*3/uL Eosinophils Absolute Auto 0.2 0.0-0.4 X10*3/u L Basophils Absolute Auto 0.0 0.0-0.2 X10*3/uL NRBC Abs Auto 0.000 0.0-0.012 X10*3/uL Comprehensive [place]. Panel Fa st Reviewed date:08/01/2024 05:06:42 PM Interpretation: Performing Lab:[facility], [address] [place] [phone] Notes/Report: Sodium 140 135-145 mmol/L Potassium 3.9 3.3-5.1 mmol/L Chloride 106 96-108 mmol/L Carbon Dioxide 26 22-29 mmol/L Anion Gap 12 12-20 Blood Urea Nitrogen 14 9-16 mg/dL Creatinine 0.66 0.5-1.4 mg/dL Estimated Glomerular Filt Rate > 60 Chronic Kidney Disease: Estimated GFR < 60 mL/min/1.73m2 Severe Kidney Disease: Estimated GFR < 15 mL/min/1.73m2 Glucose Fasting 107 60-99 mg/dL A fasting glucose from 100-125 mg/dl is considered impaired (pre-diabetes). Calcium 9.0 8.4-10.2 mg/dL Bilirubin Total 0.5 0.0-1.0 mg/dL Aspartate Amino Transferase 29 5-31 U/L Alanine Aminotransferase 28 0-31 U/L Total Protein 7.7 6.5-8.0 g/dL Albumin Level 4.4 3.5-5.0 g/dL Alkaline Phosphatase 35 39-117 U/L Lipid Panel Reviewed date:08/25/2024 08:11:13 AM Interpretation:saul 08/23/24 Performing Lab:[facility], [address] [place] [phone] Notes/Report: Triglycerides 173 <150 mg/dL Desirable Triglyceride: less than 150 mg/dL Borderline High Triglyceride 150-199 mg/dL High Triglyceride: 200-499 mg/dL Very High Triglyceride: greater than or equal to 5OO mg/dL Cholesterol 179 <200 mg/dL Desirable Cholesterol: less than 200 mg/dL Borderline High Cholesterol: 200-239 mg/dL High Cholesterol: greater than 239 mg/dL LDL Cholesterol Calculated 93 <100 mg/dL Desirable LDL: less than 100 mg/dL Near Optimal/Above Optimal LDL: 110-129 mg/dL Borderline High LDL: 130-159 mg/dL High LDL: 160-189 mg/dL Very High LDL: greater than or equal to 190 mg/dL HDL Cholesterol 52 >40 mg/dL Desirable HDL: greater than 40 mg/dL Note: This HDL assay may give artificially low results in patients with liver disease. Vitamin D 25-OH Total Reviewed date:08/01/2024 12:45:04 PM Interpretation: Performing Lab:[facility], [address] [place] [phone] Notes/Report: Vitamin D 25-OH Total 120.2 >30 ng/mL Health Based Reference Values* < 20 ng/mL Deficient 20-30 ng/mL Insufficient > 30 ng/mL Sufficient *Clark LIU. N Engl J Med. 2007;357:266-280 Care must be taken in interpreting Vitamin D results from different laboratories and methodologies. Published data demonstrated that results from patients undergoing hemodialysis may show a negative bias when tested with various automated 25-OH vitamin D assays when compared to LC-MS/MS. When testing samples from patients whose predominant form of Vitamin D is Vitamin D2, such as patients receiving Vitamin D2 supplementation, results that are subtherapeutic should be confirmed with another method such as LC-MS/MS. Microalbumin, Random Reviewed date:08/01/2024 05:00:04 PM Interpretation: Performing Lab:[facility], [address] [place] [phone] Notes/Report: Creatinine Urine 43.47 Microalbumin Urine 6.0 Microalbum/Creatinine Ratio Ur 13.8 <30 ug/mg cr Albumin/Creatinine Ratio Reference Ranges: Normal: < 30 ug/mg creatinine Microalbuminuria: 30 - 300 ug/mg creatinine Clinical Albuminuria: > 300 ug/mg creatinine Hemoglobin A1c Reviewed date:08/01/2024 12:17:26 PM Interpretation: Performing Lab:[facility], [address] [place] [phone] Notes/Report: Hemoglobin A1c % 5.6 <6.0 % Hemoglobin A1C Reference Range Adults: 4.8 - 6.0 % Non diabetic: < 6.0 % Goal: < 7.0 % Additional Action Suggested: > 8.0 % Note: Hemoglobin A1c results are invalid for patients with abnormal amounts of HbF. Blood transfusions may impact the HbA1c concentration in the patient sample. Estimated Average Glucose 114 eAG = Estimated average glucose which is %A1C expressed as average glucose, using the formula of the M9M-Onfgjff Average Glucose study (ADAG), Diabetes Care, Vol.31,#8, Mar. 2007 UA ClnCatch+Micro w/rflx Cul t Reviewed date:08/01/2024 12:44:53 PM Interpretation: Performing Lab:[facility], [address] [place] [phone] Notes/Report: Urine, Clean Catch Color Urine Yellow Appearance Urine Clear PH 7.5 5.0-9.0 Glucose Urine UA Negative Negative mg/dL Urine Blood Negative Negative Specific [place] - Urine 1.010 1.005-1.025 Urine Protein Negative Neg-Trace mg/dL Urine Ketones Negative Negative mg/dL Nitrite Urine Negative Negative Leukocyte Esterase Urine Small (1+) Negative RBC Urine 0-2 0-2 /HPF WBC Urine 0-5 0-5 /HPF Squamous Epithelial Cell Urine 0-2 0-2 /HPF Bacteria Urine None Seen None Seen Hyaline Casts Urine 0-2 0-2 /LPF Hemoglobin A1c (Not yet revi ewed by provider) Interpretation: Performing Lab:[facility], [address] [place] [phone] Notes/Report: Hemoglobin A1c % 7.1 <6.0 % Hemoglobin A1C Reference Range Adults: 4.8 - 6.0 % Non diabetic: < 6.0 % Goal: < 7.0 % Additional Action Suggested: > 8.0 % Note: Hemoglobin A1c results are invalid for patients with abnormal amounts of HbF. Blood transfusions may impact the HbA1c concentration in the patient sample. Estimated Average Glucose 157 eAG = Estimated average glucose which is %A1C expressed as average glucose, using the formula of the Q4I-Qtlyxne Average Glucose study (ADAG), Diabetes Care, Vol.31,#8, Mar. 2007 Urine Culture Reviewed date:08/02/2024 12:46:03 PM Interpretation: Performing Lab:[facility], [address] [place] [phone] Notes/Report: Urine Culture No growth. Devora Fitzpatrick (Not yet reviewed by provider) Interpretation: Performing Lab:[facility], [address] [place] [phone] Notes/Report: Devora Fitzpatrick See Note Specimen held untested for 24 hours; Call to request Chemistry testing. Reason For Referral No Information Medications Medication SIG (Take, Route, Frequency, Duration) Notes Start Date End Date Status Cosopt 22.3-6.8 MG/ML 1 drop into affect ed eye Ophthalmic Twice a day Active Rosuvastatin Calcium 20 MG TAKE 1 TABLET BY MOUTH ONCE DAILY for 100 Active Lisinopril 5 MG TAKE 1 TABLET BY SEAN TH ONCE DAILY for 100 Active Vitamin D3 2000 UNIT 2 capsule Orally On ce a day Active Prolia 60 MG/ML as directed Subcutaneous Active Immunizations Vaccine Route Administration Date Status Comme nts [...] 05/31/2021 Administered SARS-COV-2 Pfizer Unknown 05/28/2022 Administered Social History Tobacco Use: Social History Observation Description Date Details (start date - stop date) Never Smoker NA - NA Tobacco Use/Smoking Question Answer Notes Patient is a nonsmoker Additional Findings: Tobacco Non-User Cu rrent non-smoker, currently using no form of tobacco Alcohol Screen Question Answer Notes Did you have a drink containing alcohol in the p ast year? No Points 0 Interpretation Negative Problems Problem Type SNOMED Code ICD Code Onset Dates Problem Status W/U Status Risk Notes Problem 81805607 Age-related osteoporosis without current pathological fracture (M81.0) Active confirmed Problem 998044258 Elevated BUN (R79.9) Active confirmed Problem Essential hypertension (22788761) Essential (primary) hypertension (I10) Active confirmed Problem 177014584 Environmental allergies (Z91.09) Active confirmed Problem 206492682 History of breas t cancer (Z85.3) Active confirmed Problem Neutropenia, unspecified type (D70.9) Active confirmed Problem 208744199 Prediabetes (R73.03) Active confirmed Problem 298011395 Pure hypercholesterolemia (E78.00) Active confirmed Problem 472371049 Low vitamin D le francesco (E55.9) Active confirmed Problem 050702802 Age related osteoporosis, unspecified pathological fracture presence (M81.0) Active confirmed Vital Signs Blood pressure diastolic 76 mm Hg 08/23/2024 Height 57 in 08/23/2024 Blood pressure systolic 138 mm Hg 08/23/2024 Weight 109 lbs 08/23/2024 BMI 23.58 kg/m2 08/23/2024 Encounters Encounter Location Date Provider Diagnosis Malick Ayala MD [address] [place], [place] [phone] 08/01/2024 Malick Ayala Blood tests for rout ine general physical examination Z00.00 ; Essential (primary) hypertension I10 ; Elevated BUN R79.9 ; Prediabetes R73.03 ; Low vitamin D level E55.9 ; Neutropenia, unspecified type D70.9 and Pure hypercholesterolemia E78.00 Malick Ayala MD [address] [place] [id number] 02/20/2025 Malick Ayala Pure hypercholestero lemia E78.00 and Prediabetes R73.03 Malick Ayala MD [address] [place] [phone] 08/23/2024 Malick Ayala Low vitamin D level E55.9 ; Annual physical exam Z00.00 ; Essential (primary) hypertension I10 ; Pure hypercholesterolemia E78.00 ; Prediabetes R73.03 ; Elevated BUN R79.9 and Depression screening Z13.31 Assessments Encounter Date Diagnosis (ICD Code) Assessment Notes Treatment Notes Treatment Clinical Notes Section Notes 08/01/[address] ine general physical examination (ICD-10 - Z00.00) 08/01/2024 Essential (primary) hypertension (ICD-10 - I10) 02/20/2025 Pure hypercholesterolemia (ICD-10 - E78.00) 08/23/2024 Low vitamin D level (ICD-10 - E55.9) is now too high so will stop and recheck in 6 mo 08/23/2024 Annual physical exam (ICD-10 - Z00.00) labs reviewed and discused with patient 08/01/2024 Elevated BUN (ICD-10 - R79.9) 02/20/2025 Prediabetes (ICD-10 - R73.03) 08/23/2024 Essential (primary) hypertension (ICD-10 - I10) well controlled, will continue current regiment 08/01/2024 Prediabetes (ICD-10 - R73.03) 08/23/2024 Pure hypercholesterolemia (ICD-10 - E78.00) doing well on meds, will continue current regiment 08/01/2024 Low vitamin D level (ICD-10 - E55.9) 08/23/2024 Prediabetes (ICD-10 - R73.03) stable, no need for medication at this time 08/01/2024 Neutropenia, unspeci fied type (ICD-10 - D70.9) 08/23/2024 Elevated BUN (ICD-10 - R79.9) has resolved, will continue to monitor 08/01/2024 Pure hypercholesterolemia (ICD-10 - E78.00) 08/23/2024 Depression screening (ICD-10 - Z13.31) negative screen Plan Of Treatment Pending Test Test Name Order Date Electrocardiogram (EKG) 06/02/2016 Electrocardiogram (EKG) 06/04/2017 Electrocardiogram (EKG) 06/17/2018 KYPHOPLASTY THORACIC 12/07/2018 KYPHOPLASTY THORACIC 11/30/2018 US BREAST BIOPSY CORE GUIDE 07/05/2019 Liver Panel 02/20/2025 Glucose Fasting 02/20/2025 Lipid Panel with Reflex 02/20/2025 Hold Gold 02/20/2025 Hemoglobin A1c 02/20/2025 Next Appt Details Provider Name:Malicktiffanie Quiles ier, 02/27/2025 09:00:00 AM, [address] [place] [address], [address], [phone], Provider Name:Malick Quiles ier, 08/22/2025 07:00:00 AM, [address] [place] [address], [address], [phone], Provider Name:Malick Quiles ier, 08/29/2025 09:30:00 AM, [address] [place] [address], [address], [phone], Insurance Providers Payer Name Payer Address Payer Phone Subscriber Number Group Number Insured Name Patient Relationship to Insured Coverage Start Date Coverage End Date [facility] [employer] [address] [address] [place] [address] [id number] Patricia Bonner Self - patient is the insured Medical (General) History Medical History History ICD Code colonoscopy 2002, due in 201202/25/13 - refuses bone density would nev er take meds 05/26/2013 - Colonoscopy (negative; no n eed for future testing per ) Neutropenia, unspecified type D70.9 Lymphocytosis D72.820 mammo 2020 negative
--- OUTSIDE RECORDS SUMMARY | 2025-02-20 11:45 | XMS_ITS | Clinical Summary ---
Author Organization [facility] Address [address] [place] [address] Phone Care Team Providers Care Offset Press Assistant Name Role Phone Malick Huff MD Primary Care Provider Allergies Active Allergy Reactions Criticality Noted Date Comments Atorvastatin Weakness 07/08/2019 Medications cholecalciferol (VITAMIN D-3) 50 mcg (2,000 unit) tablet Take 1 tablet (2,000 Units total) by mouth 1 (one) time each day. Active lisinopriL (PRINIVIL,ZESTRI L) 5 mg tablet Take 1 tablet (5 mg total) by mouth 1 (one) time each day. Active rosuvastatin (CRESTOR) 20 mg tablet Take 1 tablet (20 mg total) by mouth 1 (one) time each day. Active Active Problems Problem Noted Date Diagnosed Date Osteoporosis 07/04/2024 Hypertension 07/04/2024 Glaucoma 07/04/2024 Breast cancer ([facility] V24, [facility] V28) 024 Surgical History Surgery Date Site/Laterality Comments TONSILLECTOMY PROCEDURE: HISTORICAL TONSILLECTOMY SECTION PROCEDURE: HISTORICAL MASTECTOMY Left Medical History Medical History Date Comments Osteoporosis DX:Osteoporosis Glaucoma DX:Glaucoma Hypertension DX:Hypertension Breast cancer ([facility] V24, [facility] V28) DX:Breast cancer ([facility]) Family History Medical History Relation Name Comments Breast cancer Mother Relation Name Status Comments Mother Social History Tobacco Use Types Packs/Day Years Used Date Smoking Tobacco: Never Smokeless Tobacco: Never Comments No Sex and Gender Information Value Date Recorded Sex Assigned at Not on file Legal Sex Female 12:45 AM EST Gender Identity Not on file Sexual Orientation Not on file Obstetrics History Para Term AB IAB SAB Ectopic Multiple Livin g Live Births 1 Last Filed Vital Signs Vital Sign Reading Time Taken Comments Blood Pressure 128/80 08/30/2024 8:15 AM EST Pulse 64 08/30/2024 8:15 AM EST Temperature 36.4 C (97.6 F) 08/30/2024 8:15 AM EST Respiratory Rate - - Oxygen Saturation - - Inhaled Oxygen Concentration - - Weight 49 kg (108 lb) 07/15/2024 10:01 AM EST Height 137.2 cm (4' 6 ) 07/15/2024 10:01 AM EST Body Mass Index 26.04 07/15/2024 10:01 AM EST Plan of Treatment Health Maintenance Due Date Last Done Comments DTaP,Tdap,and Td Vaccines (1 - Tdap) 1959 RSV Immunization Adult Patients (1 - 1-dose 75+ series) 2015 Cholesterol Screening (Lipid Panel) 07/25/2022 Depression Screening 07/25/2022 Falls Risk Assessment 07/25/2022 Medicare Annual Wellness Visit 07/25/2022 Social Influencers of Health Screening 07/25/2022 Hypertension/CHF/CAD Annual BMP Blood Test 08/02/2022 COVID-19 Vaccine ( season) 2024 05/28/2022, 05/15/2021, 10/11/2020, Additional history exists Influenza Vaccine (#1) 2025 , 05/11/2023, 05/12/2022, Additional history exists Osteoporosis Screening (Bone Density Screening) 07/05/2029 07/05/2019, 04/03/2017 Zoster Vaccines Completed 01/14/2019, 07/27/2018 Pneumococcal Vaccine: 50+ Years Completed 06/21/2019, 06/03/2017 HIB Vaccines Aged Out No longer eligi ble based on patient's age to complete this topic HPV Vaccines Aged Out No longer eligi ble based on patient's age to complete this topic Hepatitis A Vaccines Aged Out No long er eligible based on patient's age to complete this topic Hepatitis B Vaccines Aged Out No long er eligible based on patient's age to complete this topic IPV Vaccines Aged Out No longer eligi ble based on patient's age to complete this topic MMR Vaccines Aged Out No longer eligi ble based on patient's age to complete this topic Meningococcal ACWY Vaccine Aged Out N o longer eligible based on patient's age to complete this topic Meningococcal B Vaccine Aged Out No l onger eligible based on patient's age to complete this topic RSV Immunization Patients Under 20 months Aged Out No longer eligible based on patient's age to complete this topic Varicella Vaccines Aged Out No longer eligible based on patient's age to complete this topic Procedures Procedure Name Priority Date/Time Associated Diagnosis Comments [facility] [place] DEXA AXIAL SKELETON Routine 07/05/2019 8:35 AM EST Age-related osteoporosis without current pathological fracture from Last 3 Months or Most Recently Relevant to Health Maintenance Results * [facility] DEXA AXIAL SKELETON (07/05/2019 8:35 AM EST) Anatomical Region Laterality Modality Mammography 07/04/2019 7:31 AM EST Narrative 07/05/2019 8:35 AM EST [facility] Diagnostic Imaging Department [address] [place] [address] Patient: PATRICIA BONNER /Age/Sex: 1940 - 79 - F Unit#: [id number] Location/Status: SPDIMAM/REG CLI Mnemonic[facility] Ordering Physician: MALICK HUFF MD [facility] Dexa Axial Skeleton - 07/04/19799 HISTORY: The patient is a 79-year-old postmenopausal female with clinical concern for metabolic bone disease. The patient has undergone previous lumbar spine vertebral augmentation, and has a history of a right hip fracture. FINDINGS: Dual energy x-ray absorptiometry of the left femur is performed. The mean bone mineral density of the left femur is 0.585 gm/cm2 which is 58% of that of young normals and 81% of that of age matched controls. This yields a T-score of -3.4 and a Z-score of -1.1 which is diagnostic of osteoporosis. IMPRESSION: 1. Osteoporosis. 2. FRAX analysis yields a 10-year probability of major osteoporotic fracture of 41.5% and a 10-year probability of hip fracture of 19.5%. Code 44041 Dictating Physician: MARIO IBANEZ MD Electronically Signed by: MARIO IBANEZ MD Dic Date/Time: 07/05/19832 Sign date/Time: 07/05/19834 Procedure Note Mario Ibanez - 08/05/2022 [facility] Diagnostic Imaging Department [address] [place] [address] Patient: PATRICIA BONNER D.O.B./Age/Sex: 1940 - 79 - F Unit#: [id number] Location/Status: [facility] CLI Mnemonic[facility] Ordering Physician: MALICK HUFF MD [facility] Dexa Axial Skeleton - 07/04/19799 HISTORY: The patient is a 79-year-old postmenopausal female withclinical concern for metabolic bone disease. The patient has undergone previouslumbar spine vertebral augmentation, and has a history of a right hip fracture. FINDINGS: Dual energy x-ray absorptiometry of the left femur isperformed. The mean bone mineral density of the left femur is 0.585 gm/cm2 which is 58%of that of young normals and 81% of that of age matched controls. This yields aT-score of -3.4 and a Z-score of -1.1 which is diagnostic of osteoporosis. IMPRESSION: 1. Osteoporosis. 2. FRAX analysis yields a 10-year probability of major osteoporoticfracture of 41.5% and a 10-year probability of hip fracture of 19.5%. Code 05115 Dictating Physician: MARIO IBANEZ MD Electronically Signed by: MARIO IBANEZ MD Dic Date/Time: 07/05/19832 Sign date/Time: 07/05/19834 Malick Huff MD IMG BI PROCEDURES Final Res ult from Last 3 Months or Most Recently Relevant to Health Maintenance Insurance [employer] MEDICARE Care Teams Offset Press Assistant Relationship Specialty Start Date End Date Malick Huff MD PCP - General Internal Medicine 03/17/13
--- OUTSIDE RECORDS SUMMARY | 2025-02-20 11:45 | XMS_ITS | Patient Health Record ---
Author Organization [facility] Address [address] [place] [address] Care Team Providers Care Vice President Of Compliance Name Role Phone Malick Ayala MD Primary Care Provider Lasha Jose Unavailable [phone] Reason For Referral No Information Medications Medication SIG (Take, Route, Frequency, Duration) Notes Start Date End Date Status Dorzolamide HCl-Timolol Mal 2.23%-0.68% Active Simvastatin 40MG Act duke Lisinopril-hydroCHLOROthiaz rolf 10-12.5MG Active Aspir-81 81MG Active Colyte with Flavor Packs 240 GM as directed Orally as directed for 1 dose 04/26/2013 Active Claritin Active Problems Problem Type SNOMED Code ICD Code Onset Dates Problem Status W/U Status Risk Notes Problem Colon cancer screening (V76.51) Active confirmed Plan Of Treatment Future Test Test Name Order Date COLONOSCOPY 04/26/2013 Insurance Providers Payer Name Payer Address Payer Phone Subscriber Number Group Number Insured Name Patient Relationship to Insured Coverage Start Date Coverage End Date [facility] [address] [address] [place] [id number] Self - patient is the insured Medical (General) History Medical History History ICD Code COLONOSCOPY, 2002--negative except int/e xt hemorrhoids Hyperlipidemia BENIGN BREAST DISEASE Denies AK,DM,CVA,Lung disease,renal dise ase HTN Surgical History Surgery Date(Month/Year) SECTION breast biopsy-benign
--- OUTSIDE RECORDS SUMMARY | 2025-02-20 11:45 | XMS_ITS ---
Author Organization [facility] Care Team Providers Care Sustainable Design Coordinator Name Role Phone Nabeel Frank Unavailable Unavailable Allergies and adverse reactions No Known Allergies Care Team Name Role Address Phone Organization Dates Nabeel Frank PCP [address] [facility] [address], [place], [address], [place] (Office): : [facility] 12/19/2017 - 12/31/2017 Immunizations Immunization Status Vaccine Details Vaccine Code CodeSystem Date Notes Influenza completed Influenza, split virus, trivalent, injectable, contains preservative 141 CVX created date: 8 administe red date: 7 TB 2 Step Mantoux Skin Test completed tuberculin skin test; unspecified formulation lotNumber: [id number] expiry: 06/17/2019 Mfg: [id number] Given 0.1 Left Forearm subcutaneously Step 1 of Multi-step with next step required 98 CVX created date: 8 consent date: 8 administe red date: 8 12/29/17 Read by Dean Dumont, RN TB 2 Step Mantoux Skin Test completed tuberculin skin test; unspecified formulation Given 0.1 ml Right Forearm intradermally Step 1 of Multi-step with next step required 98 CVX created date: 8 consent date: 8 administe red date: 8 12/20/17 Administered by Jarad Talley LP12/22/17 Read by Barbara Guallpa RN [id number] (Pneumococcal Conjugate)Vacci ne completed pneumococcal conjugate vaccine, 13 valent 133 CVX created date: 8 administe red date: 7 Mental Status Section Date Assessment Total Score Description 12/31/2017 BIMS 15 cognitively int act CAM 0 No delirium ind icated PHQ-9 00 12/26/2017 BIMS 15 cognitively int act CAM 0 No delirium ind icated PHQ-9 00 Problems Problem # Description Date of onset Resolved Date Code CodeSystem Concern Status 1 AGE-RELATED NUCLEAR CATARACT, UNSPECIFIED EYE [address] active 2 DISPLACED INTERTROCHANTERIC FRACTURE OF RIGHT FEMUR, SUBSEQUENT ENCOUNTER FOR CLOSED FRACTURE WITH ROUTINE HEALING [address] active 3 DYSPHAGIA, UNSPECIFIED [address] active 4 ESSENTIAL (PRIMARY) HYPERTENSION [address] active 5 MUSCLE WEAKNESS (GENERALIZED) [address] active 6 REPEATED FALLS [address] active 7 WEAKNESS [address] active Reason for Referral No Reasons for Referral Entered Social History Social History Observation Description Start Date End Date Code Code System Current Smoking Status Tobacco smoking consumption unknown 871058342 SNOMED CT Sex Assigned At Female 1940 55304-8 [facility] Gender Identity Vital Signs Code Code System Vitals Name Values and Units Timing Information 86053-0 [facility] Pain Level Value=0.0 12/31/2017 9279-1 INC Respiratory Rate Value=18.0 Units=/m in 12/22/2017 8462-4 LO[facility] Blood Pressure-Diastolic Value=67 Un its=mmHg 12/22/2017 8480-6 LOINC Blood Pressure-Systolic Jmepf=868 Un its=mmHg 12/22/2017 8310-5 LOINC Body Temperature Value=97.4 Units= F 12/22/2017 8867-4 LOINC Heart rate Value=87.0 Units=/min 03/2018 05573-9 INC O2 % BldC Oximetry Value=99.0 Units= % 12/22/2017 8302-2 LOINC Height Value=60.0 Units=Inches 12/19/2017 06118-9 [facility] Weight Qcmey=658.0 Units=Lbs 12/2017
--- OUTSIDE RECORDS SUMMARY | 2025-02-20 11:45 | XMS_ITS ---
Author Name [facility] Organization Unknown Results Test Name/Text Value Interpretation Date Range Source LAB AP DIAGNOSIS COMMENT Received from [facility] [address], [place] [address], are one slide and one block labeled [id number] , which are retained for our files. Normal 01/20/2024 [facility] AP GROSS DESCRIPTION Received in formalin is an irregularly shaped fragment of skin measuring 0.6 x 0.6 x 0.1 cm. The specimen is bisected and submitted entirely in one cassette. (Gross Description performed by [facility], [place], [place]) Normal 01/20/2024 [facility] AP CLINICAL INFORMATION Dysplastic nevus Normal 01/20/2024 [facility]
[2025-02-20 13:33] LABS: Alanine Aminotransferase 19 U/L (0-31); Albumin Level 4.3 g/dL (3.5-5.0); Alkaline Phosphatase 62 U/L (39-117); Aspartate Amino Transferase 25 U/L (5-31); Cholesterol 127 mg/dL (<200); HDL Cholesterol 36 mg/dL (>40); Total Protein 6.8 g/dL (6.5-8.0); Triglycerides 93 mg/dL (<150)
[2025-02-20 13:42] LABS: Reflex LDLD? No
== END 2025-02-20 10:49 | disposition home or self-care (01) ==
LOC: HO.LNP 10:48
PROVIDERS: Visit Provider Internal Medicine
DX: E78.00 Pure hypercholesterolemia, unspecified (principal); R73.03 Prediabetes
CPT/HCPCS: 80061; 80076; 82947; 83036